=== PATIENT | male | born 1955 | race Native Hawaiian/Other Pacific Islander ===

== ENCOUNTER 2016-05-01 20:55 | Emergency (ER) | payer BC ==
[~2016-05-01] VITALS: Ht 175.3 cm; Wt 89.8 kg
[~2016-05-01 20:55] MED LIST: CARI350T15 PO; HYDR-2748 PO; LISINOP/HCTZ1 TA2 PO; PLAVIX75 MG PO; PRAVACHOL80 MG PO
[2016-05-01 21:36] LABS: PLATELET COUNT 212 K/uL (142-355)
[2016-05-01 21:43] LABS: POTASSIUM 3.5 mmol/L (3.6-5.2); SODIUM 122 mmol/L (136-145)
[2016-05-01 23:25] VITALS: BP 102/65; TEMP 98.6
== END 2016-05-01 23:35 | disposition home or self-care (01) ==
LOC: ED 20:55
DX: R07.89 Other chest pain (principal); M47.896 Other spondylosis, lumbar region; R00.8 Other abnormalities of heart beat
CPT/HCPCS: 36415; 80053; 82550; 84484; 85027; 86318; 93005; 96361; 96374; 99284; J1885

== ENCOUNTER 2016-05-24 06:39 | Outpatient (CLI) | payer BC ==
[~2016-05-24] VITALS: Ht 175.3 cm; Wt 90.7 kg
== END 2016-05-24 19:45 | disposition home or self-care (01) ==
LOC: NM 06:39
DX: R07.89 Other chest pain (principal); I25.89 Other forms of chronic ischemic heart disease
CPT/HCPCS: A9500; J2785

== ENCOUNTER 2016-06-07 07:50 | Outpatient (CLI) | payer BC | END 2016-06-07 19:03 | disposition home or self-care (01) | LOC: MRI 07:50 | DX: M54.17 Radiculopathy, lumbosacral region (principal) ==

== ENCOUNTER 2016-09-09 13:30 | Emergency (ER) | payer BC ==
[~2016-09-09] VITALS: Ht 175.3 cm; Wt 88.5 kg
[2016-09-09 13:44] VITALS: TEMP 98.7
[2016-09-09 14:57] LABS: PLATELET COUNT 151 K/uL (142-355)
[2016-09-09 15:02] LABS: POTASSIUM 4.2 mmol/L (3.6-5.2)
[2016-09-09 16:53] VITALS: BP 115/58
== END 2016-09-09 16:54 | disposition home or self-care (01) ==
LOC: ED 13:30
DX: S00.93XA Contusion of unspecified part of head, initial encounter (principal); S30.0XXA Contusion of lower back and pelvis, initial encounter; W19.XXXA Unspecified fall, initial encounter; Y92.098 Other place in other non-institutional residence as the place of occurrence of the external cause
CPT/HCPCS: 80053; 81000; 85027; 93005; 96372; 99283; J1885